=== PATIENT | female | born 1955 | race Caucasian/White ===

== ENCOUNTER 2024-06-04 09:17 | Day surgery (SDC) | payer MEDICARE, MEDICAID ==
[~2024-06-04] VITALS: Ht 144.8 cm; Wt 62.6 kg
[~2024-06-04 09:17] MED LIST: CALC500T63 PO; CELE-148 PO; CHOL100046 PO; ENOX40SY7 SUBCUT; ESCI20TA39 PO; FENT1PAT7 TD; HYDR-4353 PO; TERI2.4P SUBCUT; TRAM50TA2 PO
[2024-06-04] MEDS ORDERED: IPRA4AER INH (10:12)
[2024-06-04] MEDS ORDERED: MIDO5TAB4 PO (10:12)
[2024-06-04] MEDS ORDERED: TRAM50TA2 PO (10:12)
[2024-06-04] MEDS ORDERED: QUET25TA PO (10:12)
[2024-06-04] MEDS ORDERED: SPIR25TA5 PO (10:12)
[2024-06-04] MEDS ORDERED: OMEP20CA16 PO (10:12)
[2024-06-04] MEDS ORDERED: FURO40TA4 PO (10:12)
[2024-06-04] MEDS ORDERED: HYDR-3686 PO (10:12)
[2024-06-04 10:13] LABS: BASOPHILS # (AUTO) 0.1 X10'3 (0-0.2); BASOPHILS % (AUTO) 1.2 % (0-1); EOSINOPHILS # (AUTO) 0.2 X10'3 (0-0.9); EOSINOPHILS % (AUTO) 3.1 % (0-6); HEMATOCRIT 33.3 % (35.0-45.0); HEMOGLOBIN 11.2 g/dl (12.0-16.0); LYMPHOCYTES # (AUTO) 0.9 X10'3 (1.1-4.8); MEAN CORPUSCULAR HEMOGLOBIN 32.6 PG (27.0-31.0); MEAN CORPUSCULAR HGB CONC 33.6 g/dL (33.0-36.5); MEAN CORPUSCULAR VOLUME 96.9 FL (78-98); MONOCYTES # (AUTO) 0.5 X10'3 (0-0.9); MONOCYTES % (AUTO) 7.1 % (2-12); NEUTROPHILS # (AUTO) 5.5 X10'3 (1.8-7.7); NEUTROPHILS % (AUTO) 76.6 % (42-75); PLATELET COUNT 379 X10'3 (140-440); RED BLOOD COUNT 3.44 X10'6 (4.20-5.60); RED CELL DISTRIBUTION WIDTH 14.6 % (11.5-14.5); WHITE BLOOD COUNT 7.1 X10'3 (4.5-11.0)
[2024-06-04] MEDS ORDERED: ALLO100T PO (10:13)
[2024-06-04] MEDS ORDERED: ESCI20TA PO (10:13)
[2024-06-04 10:21] LABS: ALBUMIN 3.7 G/DL (3.4-5.0); ANION GAP 13 (8-16); BLOOD UREA NITROGEN 78 MG/DL (7-18); BUN/CREATININE RATIO 14.6 (10.0-20.0); CALCIUM 8.9 MG/DL (8.5-10.1); CHLORIDE 103 MMOL/L (99-107); CREATININE 5.35 MG/DL (0.40-0.90); GLUCOSE 97 MG/DL (70-104); SODIUM 139 MMOL/L (135-145); TOTAL CARBON DIOXIDE 22.7 MMOL/L (24-32); eCRCL 6 ML/MIN; eGFR 8 ML/MIN
[2024-06-04 10:22] LABS: INR 1.1 INR; PROTHROMBIN TIME 11.1 SECONDS (9.0-12.0)
[2024-06-04] MEDS ORDERED: heparin 1,000unit/ml 10ml vial 10 ML ONE (10:58)
[2024-06-04] MEDS ORDERED: fentaNYL/PF 50MCG/1 ML 2ML syringe ONE (11:32)
[2024-06-04] MEDS ORDERED: midazolam 1 mg/ML 2ml injection ONE (11:32)
[2024-06-04 13:00] VITALS: BP 144/44; PULSE 71; RESP 15; O2SAT 96; O2SAT 97
[2024-06-04 13:14] VITALS: BP 115/49; PULSE 69; RESP 14; O2SAT 98
[2024-06-04 13:29] VITALS: BP 114/56; PULSE 69; RESP 13; O2SAT 96
[2024-06-04 13:44] VITALS: BP 123/57; PULSE 66; RESP 14; O2SAT 95
[2024-06-04 14:00] VITALS: BP 102/62; PULSE 67; RESP 15; O2SAT 96
== END 2024-06-04 14:05 | disposition home or self-care (01) ==
LOC: SSTAY O 09:17
PROVIDERS: ATTEND Radiology Diagnostic Radiology
DX: N18.6 End stage renal disease (principal)
CPT/HCPCS: 36415; 36558; 76937; 77001; 80048; 85025; 85610; 99152; A4620; A9270; C1750; C1769; C1894; J1644; J2250; J3010; J7030; Z7610; 99153